=== PATIENT | female | born 1975 | race Caucasian/White ===

== ENCOUNTER 2021-06-14 10:24 | Outpatient (CLI) | payer OTHER ==
[2021-06-14] MEDS ORDERED: FLUO10CA13 PO (11:23)
[2021-06-14] MEDS ORDERED: SOFO1TAB PO (11:23)
[2021-06-14] MEDS ORDERED: PREG150C PO (11:23)
[2021-06-14 11:32] LABS: ANION GAP 6 mmol/L (5-15); CALCIUM 8.9 mg/dL (8.5-10.1); CHLORIDE 110 mmol/L (98-107); CREATININE 0.56 mg/dL (0.55-1.02)
[2021-06-14 11:33] LABS: BASOPHILS % (AUTO) 1 % (0-1); EOSINOPHILS % (AUTO) 2 % (1-7); LYMPHOCYTES % (AUTO) 31 % (22-44); MEAN CORPUSCULAR HEMOGLOBIN 30.8 pg (27.0-34.8); MEAN CORPUSCULAR HGB CONC 34.3 g/dL (32.4-35.8); MEAN PLATELET VOLUME 9.9 fL (7.4-10.4); MONOCYTES % (AUTO) 11 % (2-9); NEUTROPHILS % (AUTO) 56 % (42-75); PLATELET COUNT 194 x10^3/uL (130-400); RED BLOOD COUNT 5.03 x10^6/uL (3.82-5.3); RED CELL DISTRIBUTION WIDTH 13.3 % (9.6-15.2)
[2021-06-14 11:35] LABS: INTERNATIONAL NORMALIZED RATIO 0.97 (0.93-1.1); PROTHROMBIN TIME 10.4 Seconds (9.6-11.5)
== END 2021-06-14 23:59 | disposition home or self-care (01) ==
LOC: STAR 10:24
PROVIDERS: ATTEND Neurological Surgery
DX: Z01.818 Encounter for other preprocedural examination (principal); M51.26 Other intervertebral disc displacement, lumbar region; R00.1 Bradycardia, unspecified
CPT/HCPCS: 36415; 71046; 80048; 85025; 85610; 85730; 93005

== ENCOUNTER 2021-06-20 05:35 | Day surgery (SDC) | payer OTHER ==
[~2021-06-20] VITALS: Ht 167.6 cm; Wt 93.6 kg
[~2021-06-20 05:35] MED LIST: FLUO10CA13 PO; PREG150C PO; SOFO1TAB PO
[2021-06-20 06:16] VITALS: BP 95/66
[2021-06-20] MEDS ORDERED: CHLORHEXIDINE 15 ML UDC PO ONE (06:30)
[2021-06-20] MEDS ORDERED: LACTATED RINGERS 1,000 ML IV SCH (06:30)
[2021-06-20] MEDS ORDERED: BUPIVACAINE/PF 0.5% ONE (06:46)
[2021-06-20] MEDS ORDERED: EPINEPHRINE 1 MG/ML, 1ML ONE (06:47)
[2021-06-20] MEDS ORDERED: VANCOMYCIN 1,000 MG ONE (06:47)
[2021-06-20] MEDS ORDERED: GENTAMICIN 80 MG/2 ML ONE (06:47)
[2021-06-20] MEDS ORDERED: FENTANYL PF 250 MCG/5ML ONE (07:13)
[2021-06-20] MEDS ORDERED: MIDAZOLAM 1 MG/ML, 2ML ONE (07:13)
[2021-06-20] MEDS ORDERED: PROMETHAZINE 25 MG/ML, 1ML IVPush PRN (07:30)
[2021-06-20] MEDS ORDERED: METHOCARBAMOL 1,000 MG in DEXTROSE 5% 100 ML IV PRN (07:30)
[2021-06-20] MEDS ORDERED: FENTANYL PF 100 MCG/2ML IV PRN (07:30)
[2021-06-20] MEDS ORDERED: OXYcodone 5 MG/5 ML ORAL.SOL UDC PO PRN (07:30)
[2021-06-20] MEDS ORDERED: ACETAMINOPHEN 325 MG TABLET PO PRN (07:30)
[2021-06-20] MEDS ORDERED: MEPERIDINE/PF 25MG/0.5ML IVPush PRN (07:30)
[2021-06-20] MEDS ORDERED: ONDANSETRON 2MG/ML, 2ML IVPush PRN (07:30)
[2021-06-20] MEDS ORDERED: HYDROmorphone 1 MG/ML, 1ML INJ IVPush PRN (07:30)
[2021-06-20] MEDS ORDERED: LABETALOL 5MG/ML, 20ML IV PRN (07:30)
[2021-06-20] MEDS ORDERED: DIAZEPAM 5 MG/ML, 2ML IVPush PRN (07:30)
[2021-06-20] MEDS ORDERED: hydrALAzine 20 MG/ML, 1ML IV PRN (07:30)
[2021-06-20] MEDS ORDERED: ROCURONIUM 10MG/ML,5ML ONE (07:52)
[2021-06-20] MEDS ORDERED: CEFAZOLIN 1,000 MG ONE ×2 (07:52)
[2021-06-20] MEDS ORDERED: PROPOFOL 10 MG/ML, 20ML ONE (07:52)
[2021-06-20] MEDS ORDERED: LIDOCAINE-MPF 2% ,5ML ONE (07:53)
[2021-06-20] MEDS ORDERED: ONDANSETRON 2MG/ML, 2ML ONE (07:53)
[2021-06-20] MEDS ORDERED: DEXAMETHASONE 4 MG/ML, 1ML ONE ×2 (07:53)
[2021-06-20] MEDS ORDERED: BUPIVACAINE/PF-EPI 0.5% 1:200K INFIL ONE (08:03)
[2021-06-20] MEDS ORDERED: ACETAMINOPHEN 650 MG/20.3 ML UDC ONE (09:05)
[2021-06-20] MEDS ORDERED: FENTANYL PF 100 MCG/2ML ONE (09:05)
[2021-06-20] MEDS ORDERED: OXYcodone 5 MG/5 ML ORAL.SOL UDC ONE (09:05)
== END 2021-06-20 11:25 | disposition home or self-care (01) ==
LOC: OUT 05:35
PROVIDERS: ATTEND Neurological Surgery
DX: M51.16 Intervertebral disc disorders with radiculopathy, lumbar region (principal); F41.9 Anxiety disorder, unspecified; F32.9 Major depressive disorder, single episode, unspecified; M06.9 Rheumatoid arthritis, unspecified; Z79.899 Other long term (current) drug therapy; Z88.5 Allergy status to narcotic agent; Z87.891 Personal history of nicotine dependence; Z88.8 Allergy status to other drugs, medicaments and biological substances; Z83.3 Family history of diabetes mellitus; Z80.9 Family history of malignant neoplasm, unspecified
CPT/HCPCS: 63042; 72100; J0171; J0690; J1100; J1580; J2250; J2405; J2704; J2800; J3010; J3370; J7120